=== PATIENT | female | born 1950 | race Caucasian/White ===

== ENCOUNTER 2017-07-16 16:05 | Emergency (ER) | payer OTHER, MEDICAID ==
[~2017-07-16] VITALS: Ht 157.5 cm; Wt 44.9 kg
[~2017-07-16 16:05] MED LIST: ABREVA2 GM TP; ARICEPT; PAXIL; TRAMADOL 50 MG50 MG PO; VYVANSE70 MG; ZOCOR
[2017-07-16] MEDS ORDERED: HYDROCODONE-AP1 EAC6 PO (17:49)
[2017-07-16] MEDS ORDERED: PHENERGAN 25 MG25 M1 PO (17:53)
[2017-07-16] MEDS ORDERED: NABUMETONE 750750 M1 PO (18:04)
[2017-07-16] MEDS ORDERED: TRAZODONE HCL50 MG PO (18:05)
[2017-07-16] MEDS ORDERED: XANAX1 MG PO (18:05)
[2017-07-16] MEDS ORDERED: PAXIL10 MG PO (18:05)
[2017-07-16] MEDS ORDERED: DICLOFENAC SODI25 MG PO (18:06)
[2017-07-16] MEDS ORDERED: INDOMETHACIN 2525 MG PO (18:07)
[2017-07-16] MEDS ORDERED: VYVANSE70 MG PO (18:07)
[2017-07-16 18:12] VITALS: BP 141/75
== END 2017-07-16 18:14 | disposition home or self-care (01) ==
LOC: M.ERS 16:05
DX: R51 Headache (principal); M54.2 Cervicalgia; M54.5 Low back pain; M54.6 Pain in thoracic spine; M81.0 Age-related osteoporosis without current pathological fracture; F17.210 Nicotine dependence, cigarettes, uncomplicated; Z88.1 Allergy status to other antibiotic agents

== ENCOUNTER 2017-08-28 12:12 | Emergency (ER) | payer OTHER, MEDICAID ==
[~2017-08-28] VITALS: Ht 157.5 cm; Wt 44.9 kg
[~2017-08-28 12:12] MED LIST changes: +DICLOFENAC SODI25 MG PO; +HYDROCODONE-AP1 EAC6 PO; +INDOMETHACIN 2525 MG PO; +NABUMETONE 750750 M1 PO; +PAXIL10 MG PO; +PHENERGAN 25 MG25 M1 PO; +TRAZODONE HCL50 MG PO; +VYVANSE70 MG PO; +XANAX1 MG PO
[2017-08-28] MEDS ORDERED: CALCIUM 500 +1 EAC5 PO (12:17)
[2017-08-28] MEDS ORDERED: ABILIFY10 MG PO (12:17)
[2017-08-28 12:34] LABS: ABSOLUTE BASOPHILS 0.1 thou/uL (0.0-0.2); ABSOLUTE EOSINOPHILS 0.1 thou/uL (0.0-0.7); ABSOLUTE LYMPHOCYTES 1.8 thou/uL (0.8-5.3); ABSOLUTE MONOCYTES 0.7 thou/uL (0.0-1.2); ABSOLUTE NEUTROPHILS 3.4 thou/uL (1.6-8.1); EOSINOPHILS 2.2 %; HEMATOCRIT 40.6 % (37.0-47.0); HEMOGLOBIN 13.5 gm/dL (12.0-15.0); LYMPHOCYTES 29.2 %; MCH 30.5 pg (26.0-34.0); MCHC 33.4 g/dL (28.0-37.0); MCV 91.4 fL (80.0-100.0); MONOCYTES 11.4 %; MPV 7.2 fl. (7.2-11.1); NUCLEATED RBCS 0 /100WBC; PLATELET COUNT* 318 thou/uL (150-400); POLYS 55.2 %; RBC 4.44 mil/uL (4.20-5.00); RDW-CV 13.9 % (10.5-14.5); WBC 6.2 thou/uL (4.0-11.0)
[2017-08-28 12:40] LABS: ANION GAP 11 mmol/L (7-16); APTT 28.9 Seconds (25.0-31.3); BUN 26 mg/dL (7-18); CHLORIDE 105 mmol/L (98-107); CO2 27 mmol/L (21-32); CREATININE 0.8 mg/dL (0.6-1.3); GLUCOSE 105 mg/dL (70-99); POTASSIUM 3.5 mmol/L (3.5-5.1); PROTIME 10.1 Seconds (9.20-11.50); SODIUM 143 mmol/L (136-145)
[2017-08-28 12:53] LABS: SALICYLATE < 2.8 mg/dL (2.8-20.0)
[2017-08-28 12:55] LABS: ACETAMINOPHEN < 2 ug/mL (10-30); ALCOHOL < 10 mg/dL (<10)
[2017-08-28 12:59] LABS: ALBUMIN 3.9 g/dL (3.4-5.0); ALKALINE PHOSPHATASE 88 U/L (46-116); CK-MB MASS 11.5 ng/mL (<0.5-3.6); NT-PRO BRAIN NAT PEPTIDE 133 pg/mL (<300); SGOT 26 U/L (15-37); SGPT 40 U/L (30-65); TOTAL BILIRUBIN 0.9 mg/dL (<0.1-1.0); TOTAL PROTEIN 6.8 g/dL (6.4-8.2); TROPONIN-I LEVEL <0.06 ng/mL (<0.06)
[2017-08-28 13:09] LABS: URINE BILIRUBIN NEGATIVE (Negative); URINE BLOOD NEGATIVE (Negative); URINE CLARITY CLEAR; URINE COLOR YELLOW; URINE GLUCOSE-RANDOM NEGATIVE (Negative); URINE KETONES NEGATIVE (Negative); URINE LEUKOCYTES-REFLEX 1+ (Negative); URINE NITRITE-REFLEX NEGATIVE (Negative); URINE PROTEIN TRACE (Negative); URINE SPECIFIC GRAVITY >= 1.030 (1.005-1.030); URINE UROBILINOGEN 0.2 E.U./dl (0.2-1.0)
[2017-08-28 13:15] LABS: AMP/METHAMP POSITIVE (Negative); BARBITURATES Negative (Negative); BENZODIAZEPINES Negative (Negative); COCAINE Negative (Negative); METHADONE Negative (Negative); OPIATES Negative (Negative); PCP Negative (Negative); THC Negative (Negative)
[2017-08-28 13:22] LABS: CRYSTALS None Seen /LPF (None Seen); HYALINE CASTS 0-3 Few /LPF (None Seen); MUCUS 4-6 Moderate strn/LPF (None Seen); SQUAMOUS 4-10 Moderate /LPF (0-3)
[2017-08-28 13:23] LABS: BACTERIA-REFLEX 1-9 Few /HPF (None Seen); URINE RBC 0-2 Rare /HPF (0-2); URINE WBC-REFLEX 0-5 Rare /HPF (0-5)
[2017-08-28 14:14] VITALS: BP 143/89
--- NOTE | 2017-08-29 11:39 | EKG ---
[place] [address] ELECTROCARDIOGRAM REPORT Name: CARMELO FRAZIER Room: [facility]#: [id number] Admission: 08/28/17 Attend Phys: Discharge: 08/28/17 Date of : 46 Report #: [id number] THIS REPORT FOR: //name// [facility] ED Test Date: 2017-08-28 Test Time: 12:35:15 Pat Name: CARMELO FRAZIER Department: Room: Gender: F Manager General: ИРИНА : 1950 Requested By: Eder Brown Order Number: [id number] MD: Shine Harris Measurements Intervals [place] Rate: 73 P: 63 [place]: 142 QRS: 17 QRSD: 105 T: 35 QT: 408 QTc: 450 Interpretive Statements Sinus rhythm Left atrial enlargement No previous ECG available for comparison Electronically Signed On 08-29-2017 11:39:40 CDT by Shine Harris [email or web address] <ELECTRONICALLY SIGNED> By: Shine Harris MD, [facility] 08/29/17 1139 1235 1235 Shine Harris MD, FACC /EPI
== END 2017-08-28 14:16 | disposition home or self-care (01) ==
LOC: M.ERS 12:12
PROVIDERS: Family Medicine
DX: R41.82 Altered mental status, unspecified (principal); F15.10 Other stimulant abuse, uncomplicated; F17.210 Nicotine dependence, cigarettes, uncomplicated; Z88.0 Allergy status to penicillin